=== PATIENT | female | born 1940 | race Caucasian/White ===

== ENCOUNTER 2016-09-17 19:55 | Inpatient (IN) | payer OTHER ==
--- NOTE | ~2016-09-17 | CN ---
Consultation Report [facility] [address] [place]. [address] NAME: WILIAN LOYA : 38 STATUS : ADM IN PAT#: [id number] AGE: 76 ADM/REG DATE : 09/17/16 MR#: [id number] REPORT SERV DATE: 09/18/16 DICTATED BY: DEA MARTINEZ DATE: 09/18/16 REPORT STATUS : Draft TRANSCRIBED BY: MODL DATE: 09/18/16 NEUROLOGY CONSULTATION DATE OF CONSULTATION: 09/18/2016 REASON FOR CONSULTATION: Frequent falls and syncope. HISTORY OF PRESENT ILLNESS: The patient is a 76-year-old female who had a recent fall and syncopal event. Apparently, she landed on her face. She is a very poor historian due to her frontal lobe dementia. Her is not available for further information and there is no information in her chart or on the computer in regard to the recent event. When speaking with the nurse, she reports the patient has frequent falls. PAST MEDICAL HISTORY: Frontal lobe dementia, neuropathy, arrhythmia, bradycardia (pacemaker placement), hyperlipidemia, fibromyalgia, GERD, eczema, former tobacco abuse, neuropathy, herpes zoster, migraines, uterine cancer, status post chemotherapy and surgery. PAST SURGICAL HISTORY: Total abdominal hysterectomy, appendectomy, cholecystectomy, D and C, tonsillectomy and adenoidectomy, pacemaker placement, exploratory lap with hernia repair. HOME MEDICATIONS: List includes Klonopin 0.5 mg twice a day, Cymbalta 60 mg daily, vitamin D 50,000 units every two weeks, EzFe 200 mg daily, Lopid 600 mg half a tablet daily, [place] 7.5/325 mg four times a day, Prinivil 10 mg daily, Remeron 45 mg at bedtime, potassium chloride SR 10 mEq twice a day, prednisone 10 mg daily, Lyrica 100 mg t.i.d., and Zantac 300 mg b.i.d. ALLERGIES: SULFA AND ORANGES. SOCIAL HISTORY: The patient lives with her . She is a former smoker. Does not drink alcohol or use illicit's. FAMILY HISTORY: The patient's mother suffered from hypertension, heart failure, AFib, and coronary artery disease. Her father had mesothelioma, coronary artery disease, and dementia. REVIEW OF SYSTEMS: Unable to obtain due to patient's dementia. PHYSICAL EXAMINATION: GENERAL: The patient is a 76-year-old female, who stands 5 feet tall and weighs 135 pounds. She is afebrile. Heart rate 60, paced, respiratory rate 18, O2 saturations on room air 95%, blood pressure 151/72. NEURO: The patient is awake. She does communicate. She is oriented to person, place, and time, not situation. She has poor short-term memory. She is able to recall her phone Consultation Report [place] [address] [facility] [place]. [address] NAME: WILIAN LOYA : 38 STATUS : ADM IN PAT#: [id number] AGE: 76 ADM/REG DATE : 09/17/16 MR#: [id number] REPORT SERV DATE: 09/18/16 DICTATED BY: DEA MARTINEZ DATE: 09/18/16 REPORT STATUS : Draft TRANSCRIBED BY: TIERNEY DATE: 09/18/16 number and her address. She can follow simple one and two-step commands. HEENT: Pupils 2 mm on the right, 3 mm on the left. They are both reactive. Cranial nerves are intact. She can move all extremities x4. There is no pronator drift. No ataxia with finger-to- nose. Upper extremity strength is 4/5 bilaterally. Upper DTRs 1+ bilaterally. No reported sensory deficits. In the lower extremities, strength is 4/5 bilaterally. Patellar reflexes are 2+ bilaterally. Unable to elicit Achilles. Downgoing toes. The patient does have diminished sensation from the toes to mid calf bilaterally. Diminished temperature and vibratory sense in the same distribution. NECK: No carotid bruits, JVD or thyromegaly. CHEST: Lung sounds relatively clear. CARDIAC: Regular rate and rhythm, paced. DATA: CBC normal. BMP normal. Urinalysis negative for UTI. Chest x-ray, no acute changes. CT of the brain, no acute changes. ASSESSMENT/PLAN: 1. Frequent falls, unknown etiology. At this time, the patient will undergo a CTA of the head and neck to rule out possible vertebrobasilar insufficiency. She will also have a CT of the C-spine to rule out any spinal stenosis. Orthostatic vital signs will be checked and recorded in the progress notes. The patient will have an echocardiogram with bubble study. She will have additional lab work check. PT and OT consultation with evaluation and treatment will be ordered. The patient will also undergo an EEG to rule out any underlying seizure disorder. 2. It is known that the patient has neuropathy. This could contribute to her frequent falling. Again, lab work will be checked to determine the etiology of her neuropathy. Thank you again for including us in consultation. We will continue to follow with you. SHO/TIERNEY Dea Martinez [facility]- / [id number] CC: Aries Jung M.D.
--- NOTE | ~2016-09-17 | EEG ---
Electroencephalogram [facility] [address] [place]. [address] NAME: WILIAN LOYA : 38 STATUS : ADM IN PAT#: [id number] AGE: 76 ADM/REG DATE : 09/17/16 MR#: [id number] REPORT SERV DATE: 09/18/16 DICTATED BY: DATE: REPORT STATUS : Draft TRANSCRIBED BY: MODL DATE: 09/18/16 NEUROLOGY EEG REPORT CLINICAL INDICATIONS: Loss of consciousness episode. DESCRIPTION: This EEG was performed using 10/20 electrode placement system. During the EEG study, symmetric background activity was noted with predominant occipital rhythm of roughly 10 Hz. Photic stimulation was performed with appropriate driving response. Hyperventilation was not performed. During the EEG study, the patient achieved drowsy state. No focal abnormalities, seizure activity, or seizure discharge was otherwise noted. INTERPRETATION: This EEG study obtained during awake and drowsy state may be considered within normal limits. No focal abnormalities, seizure activity, or seizure discharge was otherwise noted. Normal EEG does not preclude the diagnosis of seizure disorder. Clinical correlation is otherwise recommended. [facility]/MODL Delano Vega MD / [id number] CC: MD Aries Cai M.D.
--- NOTE | ~2016-09-17 | DS ---
Discharge Summary [facility] [address] [place]. [address] NAME: MIRTA LOYD : 38 STATUS : DIS IN PAT#: [id number] AGE: 76 ADM/REG DATE : 09/17/16 MR#: [id number] REPORT SERV DATE: 09/25/16 DICTATED BY: LEVI COLON DATE: 09/24/16 REPORT STATUS : Draft TRANSCRIBED BY: MODL DATE: 09/24/16 ADMISSION DATE: 09/17/2016 DISCHARGE DATE: 09/24/2016 CONDITION ON DISCHARGE: Stable. DISPOSITION: Discharged to [facility] [place] or SNF placement as the patient has significant dementia. DIAGNOSES ON DISCHARGE: 1. Recurrent falls-this is chronic. 2. Syncope, this has resolved. 3. Peripheral neuropathy-patient is being replaced with vitamin B12 and also vitamin D per Neurology recommendation. 4. Significant dementia with psychotic features for which patient is on multiple medications including the following; the patient continues to be on duloxetine 60 mg once a day, Depakote 250 mg p.o. b.i.d./drop attacks, mirtazapine 15 mg once a day, Lyrica 100 mg p.o. q.8 hours. 5. Influenza A viral infection as the patient came back positive for influenza A. The patient has been on Tamiflu day #4, and she will be given Tamiflu today and one more day so she completes a total of 5 day course of Tamiflu therapy. BRIEF HOSPITAL COURSE: Ms Mirta Loyd is a 76-year-old female patient, who was admitted with syncope and recurrent falls. For details, please see H and P. The patient also has a history of significant eczema of the skin especially on the forehead, advanced frontal lobe dementia, peripheral neuropathy, migraines, history of herpes zoster, bradycardia status post pacemaker placement, status post chemotherapy and surgery for uterine cancer. She was admitted for the syncopal attack and in the course that she was screened for influenza as she complained of cough, she came back positive for influenza A. The patient was subsequently started on Tamiflu for this. Regarding her medications, her medications were adjusted after Neurology was consulted. Dr. Stu Andrews, and Dea Blanco, her advanced nurse practitioner, continued to follow the patient while in the hospital. The patient's symptoms significantly improved and on the day of discharge, patient is ambulating. Her confusion stays chronic, and she does have these episodes of psychosis and confusion which are probably in keeping with her dementia. However, she is back at baseline, and she has had no more falls and feels much better and is discharged to [facility] [place] with the following medications. Her only new medications are AmLactin or Lac-Hydrin lotion that I prescribed for the eczema of her forehead, and this seems to have significantly helped her. The patient is also on vitamin B12 and vitamin D replacement. At this time, we will continue her Cymbalta 60 mg once a day, trazodone 50 mg once at night, EzFe 200 mg p.o. once a day, Lopid 300 mg p.o. daily, Prinivil 5 mg p.o. daily, mirtazapine or Remeron 15 mg p.o. at bedtime, pravastatin 10 mg once at bedtime, Lyrica 100 mg p.o. t.i.d., midodrine or ProAmatine 5 mg p.o. t.i.d., Discharge Summary [address] [address] NAME: MIRTA LOYD BOO : 38 STATUS : DIS IN PAT#: [id number] AGE: 76 ADM/REG DATE : 09/17/16 MR#: [id number] REPORT SERV DATE: 09/25/16 DICTATED BY: LEVI COLON DATE: 09/24/16 REPORT STATUS : Draft TRANSCRIBED BY: TIERNEY DATE: 09/24/16 nitroglycerin 0.4 mg sublingually p.r.n. for chest pain, Zantac 300 mg p.o. b.i.d., Klonopin 0.5 mg p.o. b.i.d. p.r.n. for severe anxiety, Tylenol 650 mg every four hours p.r.n., and potassium 10 mEq p.o. b.i.d. The patient's prednisone will be discontinued at this time as I really do not see a reason as to why she is on prednisone at this time unless her PCP plans to restart it. For now, it is at least being held. I have also stopped her unnecessary other supplements that she was taking including duplication of her ergocalciferol or vitamin D. She only needs 1 prescription for 5000 units p.o. daily of the cholecalciferol, and that is pretty much it. At this time, she also needs Tamiflu 75 mg p.o. b.i.d. to finish her five day course, and I have given a prescription for this. DISCHARGE LABS: Significant labs upon discharge include the following: On 09/23/2016, the patient's CBC showed a WBC count of 7.5, hemoglobin 10.9, hematocrit 32.8, platelet count of 208. Electrolyte profile showed sodium of 147, potassium of 3.6, BUN 11, creatinine 0.8. Her blood cultures came back with one positive blood culture out of two collected on 09/21/2016, but at this time I think this is a contaminant as the patient appears clinically extremely stable and well for having positive blood cultures like this. Besides, the patient is afebrile, WBC count is fine, and definitely she does not look toxic so unnecessarily we are not going to treat this patient with any antibiotics. The patient's procainamide level has come back less than 0.4 and NAPA less than 0.6. Her ammonia levels are 39. A chest CT that was done without contrast shows that the patient has coarse bronchovascular markings and pleural thickening but no acute pneumonia. Her sedimentation rate came back normal at 19. Her procalcitonin levels came back less than 0.05 further suggesting that definitely this patient does not need any antibiotics. At the time of presentation, we also obtained a lipid profile that shows HDL of 48 and LDL of 82, total cholesterol of 144, and triglycerides of 73 in this patient. Vitamin B12 came back low at 136, and that is the reason this is being replaced. Vitamin D came back low at 25, and that is the reason this is being replaced too. A1c was normal at 5.6. Electroencephalogram showed no active seizures. The patient also had a CT scan of the brain without contrast that showed significant frontal lobe atrophy but no acute intracranial hemorrhage or any other acute intracranial pathology. The patient also had a CTA of the brain with and without contrast and CTA of the neck again showing no significant stenosis. The patient does have cerebral atrophy, which is in consistence with her dementia, so she is being transferred to [facility], and I have spent about 40 minutes in coordinating discharge care of this patient including ptra-pe-pnad encounter and summarizing this discharge. Discharge Summary [place] [address] [place] [address] NAME: MIRTA LOYD : 38 STATUS : DIS IN PAT#: [id number] AGE: 76 ADM/REG DATE : 09/17/16 MR#: [id number] REPORT SERV DATE: 09/25/16 DICTATED BY: LEVI COLON DATE: 09/24/16 REPORT STATUS : Draft TRANSCRIBED BY: MODMi DATE: 09/24/16 RRA/TIERNEY Levi Colon M.D. / [id number] CC: Lanie Jenkins M.D.
--- NOTE | ~2016-09-17 | HP ---
History And Physical [place] [id number] [facility] [place]. [address] NAME: WILIAN LOYA : 38 STATUS : ADM IN PAT#: [id number] AGE: 76 ADM/REG DATE : 09/17/16 MR#: [id number] REPORT SERV DATE: 09/18/16 DICTATED BY: DATE: REPORT STATUS : Draft TRANSCRIBED BY: MODL DATE: 09/18/16 DATE OF ADMISSION: 09/17/2016 CHIEF COMPLAINT: Recent fall and syncope. IDENTIFYING DATA: PCP, nurse practitioner at Dr. Jung's office. Neurology, Anna Orozco M.D. and Cardiology, Dr. De Dios. ION EXCHANGE OPERATOR: Neurology, Dea Blanco, nurse practitioner. HISTORY OF PRESENT ILLNESS: This is a 76-year-old female, who has been having frequent falls in the last two months with increase of falls to daily in the last week. The patient had a fall yesterday prior to admission. The patient is a very poor historian due to her frontal lobe dementia. Discussed the patient's status with over the phone and received this information. Spouse states that she is functional and that she eats well and is able to swallow her pills. The patient's spouse also is poor historian in regard to medications and physicians. The patient is currently alert and oriented to self and her date of . The patient's history was obtained through careful interview with the patient, the patient's spouse coupled with review in [facility] [employer] [facility] [employer]. PAST MEDICAL HISTORY: Eczema, history of tobacco abuse, neuropathy, GERD, status post chemotherapy and surgery for uterine cancer, migraines, herpes zoster, bradycardia with pacemaker placement, arrhythmia, frontal lobe dementia. HOME MEDICATIONS: Tylenol 650 mg every four hours as needed for pain; clonazepam scheduled 0.5 mg twice daily; Vibramycin 100 mg twice daily, has finished the last 10 days; Cymbalta 60 mg daily; vitamin D 50,000 units every 14 days; EzFe 200 mg daily; Lopid 300 mg daily; [place] 5/325 scheduled for pain and [place] 7.5/325 four times daily p.r.n. for pain; lisinopril 10 mg daily; midodrine 5 mg three times a day as needed for systolic blood pressure less than 125; mirtazapine 45 mg at bedtime. It is also written that the patient uses 's mirtazapine 30 mg also at bedtime, nitroglycerin 0.4 mg sublingual p.r.n. chest pain, potassium 10 mEq twice daily, pravastatin 10 mg daily, prednisone 10 mg daily, Lyrica 100 mg three times a day, ranitidine 300 mg twice daily, and trazodone 50 mg daily. ALLERGIES: THE PATIENT IS ALLERGIC TO SULFA, WHICH CAUSES A RASH AND ORANGES, WHICH CAUSE NAUSEA AND VOMITING. SOCIAL HISTORY: The patient lives at home with her spouse. She has history of smoking. Denies alcohol or illicit drug use. FAMILY HISTORY: The patient's father had mesothelioma, coronary artery disease, and dementia. The patient's mother suffered from hypertension, heart failure, atrial fibrillation, and coronary artery disease. REVIEW OF SYSTEMS: The patient denies shortness of breath, chest pain. Denies nausea, vomiting, or abdominal History And Physical [address] [address] NAME: WILIAN LOYA : 38 STATUS : ADM IN [facility]#: [id number] AGE: 76 ADM/REG DATE : 09/17/16 MR#: [id number] REPORT SERV DATE: 09/18/16 DICTATED BY: DATE: REPORT STATUS : Draft TRANSCRIBED BY: MODL DATE: 09/18/16 pain. The patient states no complaint of pain and is ambulatory with assistance. Review of systems negative other than HPI. PHYSICAL EXAMINATION: VITAL SIGNS: Blood pressure 161/74, O2 saturation 93% on room air, temperature 98.2, heart rate is 74, and respirations are 18. GENERAL: Elderly female, appearing stated age, resting in bed, in no acute distress. NEURO: The patient is awake and able to communicate. She is oriented to person and date of and not situation. She has poor short-term memory loss. The patient remembers her 's name and her phone number. NECK: Supple. Trachea is midline. Neck veins are flat. No obvious thyromegaly or lymphadenopathy. EENT: Sclerae are nonicteric. Pupils 2 mm on the right, 3 mm on the left. Both are reactive to light and accommodation. Nares are patent. Mucous membranes are moist, extraocular muscles within normal limits. Tongue is midline without deviation. CHEST: No pain with palpation. The patient does have a pacemaker in place. LUNGS: Clear to auscultation with normal respiratory effort. CARDIOVASCULAR: S1 and S2 with no obvious murmurs, rubs, or gallops. Rhythm is paced. ABDOMEN: Soft and nontender with active bowel sounds. No palpable organomegaly. Last bowel movement was 09/17/2016. EXTREMITIES: No significant edema, clubbing, or cyanosis. The patient does have an abrasion on her right knee. Pedal and radial pulses are present and equal bilaterally. SKIN: Skin is warm and dry with no unusual rashes or skin lesions, normal color and turgor. PSYCH: The patient is pleasant and cooperative and exhibits no anxiety. LABORATORY DATA: The patient's echo showed a negative bubble study with ejection fraction of 55%. EEG was within normal limits. CT of the brain without contrast showed no acute intracranial hemorrhage or any other acute intracranial pathology. Moderate diffuse cerebral involutional changes and deep white matter chronic microvascular ischemic changes. Chest PA and lateral showed cardiomegaly, pacemaker. Lungs are clear. Possible old rib trauma. A.m. cortisol is 16.5, TSH is 0.5, free T4 is 1.02, folate is 8.7, triglyceride 73, cholesterol 144, HDL is 48, LDL is 82, total cholesterol is 3.0, vitamin D is 25, hemoglobin A1c is 5.6. UA with reflex was negative. Sodium is 140, potassium is 4.5, chloride is 106, BUN is 11, creatinine is 1.05, GFR is 59, glucose is 99, calcium is 8.8, magnesium is 2.0. WBC is 10.6, hemoglobin 13.0, hematocrit 39.9, platelets 262. INR 1.1. CPK 207. Troponin less than 0.02. ASSESSMENT AND PLAN: 1. Syncope. We have consulted Neurology, who has already seen the patient and has ordered multiple tests and will continue to follow the patient while she is here. Orthostatic vital signs have already been ordered. 2. Recent fall. The patient is on multiple anxiolytics, benzodiazepines, excessive doses of medications. We are decreasing her sedatives and her medications and making her strict fall risk with the PT/OT evaluation. We are discontinuing her clonazepam, her Zantac, and her trazodone. We are decreasing her Lyrica to 50 mg p.o. t.i.d. due to her GFR. We are placing the patient on pain medicine, Roxicodone 5 mg p.o. t.i.d. p.r.n., not scheduled and holding if her blood pressure is less than 110 or heart rate History And Physical [address] [place]. [address] NAME: WILIAN LOYA : 38 STATUS : ADM IN PAT#: [id number] AGE: 76 ADM/REG DATE : 09/17/16 MR#: [id number] REPORT SERV DATE: 09/18/16 DICTATED BY: DATE: REPORT STATUS : Draft TRANSCRIBED BY: MODL DATE: 09/18/16 is less than 70. 3. Dementia. We will be evaluating the patient in the morning to see how she does with her decreased medications. We have decreased her Remeron to 15 mg at bedtime. It is difficult to ascertain from her home med list whether she is taking the 45 mg that has been prescribed for her as well as her 's 30 mg as well as the clonazepam that is scheduled as well as the trazodone. 4. Fibromyalgia. The patient is on Lyrica and prednisone. We are decreasing her Lyrica due to her GFR and continuing her prednisone and placing her on Roxicodone p.r.n. 5. Gastroesophageal reflux disease. We are discontinuing her Zantac due to her GFR and possible sedative affects and putting her on omeprazole. 6. Insomnia, unsure as to what the patient is taking for her insomnia. We are decreasing her Remeron dose to achieve a more sedative effect and discontinuing her clonazepam and her trazodone. Approximately, 50 minutes has been spent coordinating care of this patient, including face- to-face encounter and phone calls with her spouse. PIA/MODL Radha Landry NP / [id number] CC: MD Aries Cai M.D.
[2016-09-17 16:07] LABS: ASCORBIC ACID (UR NOT ORDER) NEG (NEG); BILIRUBIN, URINE NEGATIVE (NEG); ER URINALYSIS TAT 0 Hrs 09 Mins; KETONE, URINE NEGATIVE (NEG); LEUKOCYTE ESTERASE(NOT OR NEG (NEG); NITRITE (URINE) NEG (NEG); WBC (NOT ORDERED) (RFLEX) 1 (0-5)
[2016-09-17 16:08] LABS: BASOPHILS 0.3 %; BASOPHILS ABSOLUTE 0.03 10/3/uL (0.0-0.16); EOSINOPHILS 1.9 %; HEMATOCRIT 39.9 % (36.0-48.0); IMMATURE GRANULOCYTES 0.2 %; IMMATURE GRANULOCYTES ABSOLUTE 0.02 10/3/uL (0.0-0.11); LYMPHOCYTES 15.5 %; LYMPHOCYTES ABSOLUTE 1.64 10/3/uL (0.67-4.30); MEAN CORPUS HGB CONC 32.6 g/dL (32.0-36.0); MEAN CORPUSCULAR HEMOGLOB 30.7 pg (26.0-34.0); MEAN CORPUSCULAR VOLUME 94.1 fL (80-100); MEAN PLATELET VOLUME 10.2 fL (9.2-13.0); MONOCYTES 5.9 %; MONOCYTES ABSOLUTE 0.63 10/3/uL (0.21-1.20); NEUTROPHILS 76.2 %; NEUTROPHILS ABSOLUTE 8.09 10/3/uL (2.02-8.40); PLATELET COUNT 262 10/3/uL (150-400); RED CELL COUNT 4.24 10/6/uL (4.0-5.6); WHITE BLOOD CELLS 10.6 10/3/uL (4.5-10.5)
[2016-09-17 16:09] LABS: MANUAL DIFF NO %
[2016-09-17 16:15] LABS: INTERNATIONAL NORMAL RATI 1.1 UNITS (-); PROTIME (NOT ORD) 14.4 SEC (12.0-14.5)
[2016-09-17 16:16] LABS: PARTIAL THROMBO TIME 31.1 SEC (22.5-37.2)
[2016-09-17 16:26] LABS: BUN (BLOOD UREA NITROGEN) 11 MG/DL (6-23); CALCIUM, SERUM 8.8 MG/DL (8.5-10.4); CHEST PAIN PROFILE TAT 0 Hrs 24 Mins; CHLORIDE, SERUM 106 MMOL/L (96-112); CO2 (CARBON DIOXIDE) 25 MMOL/L (24-34); CREATININE 1.05 MG/DL (0.55-1.02); GFR AFRICAN AMERICAN 59 ML/MIN (>=60); GFR NON AFRICAN AMERICAN 51 ML/MIN (>=60); GLUCOSE, SERUM 99 MG/DL (60-99); POTASSIUM, SERUM 4.5 MMOL/L (3.5-5.3); SODIUM, SERUM 140 MMOL/L (135-148); TROPONIN I <0.02 NG/ML (<0.05)
[2016-09-17 19:32] LABS: CPK 207 U/L (0-200)
[~2016-09-17 19:55] MED LIST: AMB10 PO; CYMBALTA60 PO; DCN100 PO; IMITREX100 MG PO; KLONO5 PO; LORTAB 5 PO; LYRICA100 MG PO; LYRICA75 PO; NAP500 PO; NITROSTAT0.4 MG SL; NORCO1 TA1 PO; PRAV10 PO; PRIN5 PO; PROAMAT5 PO; RANITIDINE300 MG PO; REMERON30 MG PO; T PO; TRAZ50 PO; VALTREX5 PO; VIB100 PO; VITAMIN D31000 UNIT PO; ZANTAC300 MG PO; ZOL100 PO
[2016-09-17] MEDS ORDERED: KLONO5 PO (21:30)
[2016-09-17] MEDS ORDERED: REMERON45 MG PO (21:30)
[2016-09-17] MEDS ORDERED: PRIN10 PO (21:30)
[2016-09-17] MEDS ORDERED: LYRICA100 MG PO (21:30)
[2016-09-17] MEDS ORDERED: ZANTAC300 MG PO (21:31)
[2016-09-17] MEDS ORDERED: LOPID6 PO (21:31)
[2016-09-17] MEDS ORDERED: VITD PO (21:31)
[2016-09-17] MEDS ORDERED: P10 PO (21:32)
[2016-09-17] MEDS ORDERED: EZFE 200200 MG PO (21:32)
[2016-09-17] MEDS ORDERED: NORCO1 TA2 PO (21:32)
[2016-09-17] MEDS ORDERED: KDUR10 PO (21:32)
[2016-09-17] MEDS ORDERED: CYMBALTA60 PO (21:32)
[2016-09-18 12:46] LABS: FOLATE 8.7 NG/ML (>5.2); FREE T4 1.02 NG/DL (0.76-1.46); ULTRASENSITIVE TSH 0.5 MCIU/ML (0.358-3.740)
[2016-09-19 07:29] LABS: BUN (BLOOD UREA NITROGEN) 11 MG/DL (6-23); CALCIUM, SERUM 8.6 MG/DL (8.5-10.4); CHLORIDE, SERUM 112 MMOL/L (96-112); CO2 (CARBON DIOXIDE) 22 MMOL/L (24-34); CREATININE 0.87 MG/DL (0.55-1.02); GFR AFRICAN AMERICAN 74 ML/MIN (>=60); GFR NON AFRICAN AMERICAN 64 ML/MIN (>=60); GLUCOSE, SERUM 100 MG/DL (60-99); SODIUM, SERUM 145 MMOL/L (135-148)
[2016-09-19 07:30] LABS: POTASSIUM, SERUM 3.5 MMOL/L (3.5-5.3)
[2016-09-19 07:38] LABS: BASOPHILS 0.3 %; BASOPHILS ABSOLUTE 0.02 10/3/uL (0.0-0.16); EOSINOPHILS 2.4 %; EOSINOPHILS ABSOLUTE 0.17 10/3/uL (0.0-0.53); HEMOGLOBIN 11.7 g/dL (12.0-16.0); IMMATURE GRANULOCYTES 0.1 %; IMMATURE GRANULOCYTES ABSOLUTE 0.01 10/3/uL (0.0-0.11); LYMPHOCYTES 22.8 %; LYMPHOCYTES ABSOLUTE 1.63 10/3/uL (0.67-4.30); MEAN CORPUS HGB CONC 33.4 g/dL (32.0-36.0); MEAN CORPUSCULAR HEMOGLOB 30.2 pg (26.0-34.0); MEAN PLATELET VOLUME 10.4 fL (9.2-13.0); NEUTROPHILS 67.4 %; NEUTROPHILS ABSOLUTE 4.82 10/3/uL (2.02-8.40); PLATELET COUNT 249 10/3/uL (150-400); RBC DISTRIBUTION WIDTH 14.6 % (12.0-16.0); RED CELL COUNT 3.87 10/6/uL (4.0-5.6); WHITE BLOOD CELLS 7.2 10/3/uL (4.5-10.5)
[2016-09-19 07:40] LABS: MANUAL DIFF NO %; MEAN CORPUSCULAR VOLUME 90.4 fL (80-100)
[2016-09-20 08:40] LABS: BASOPHILS 0.1 %; BASOPHILS ABSOLUTE 0.01 10/3/uL (0.0-0.16); EOSINOPHILS 0.1 %; EOSINOPHILS ABSOLUTE 0.01 10/3/uL (0.0-0.53); HEMATOCRIT 37.1 % (36.0-48.0); HEMOGLOBIN 12.6 g/dL (12.0-16.0); IMMATURE GRANULOCYTES 0.2 %; IMMATURE GRANULOCYTES ABSOLUTE 0.02 10/3/uL (0.0-0.11); LYMPHOCYTES 4.9 %; LYMPHOCYTES ABSOLUTE 0.43 10/3/uL (0.67-4.30); MEAN CORPUSCULAR HEMOGLOB 30.7 pg (26.0-34.0); MEAN CORPUSCULAR VOLUME 90.3 fL (80-100); MEAN PLATELET VOLUME 10.3 fL (9.2-13.0); MONOCYTES ABSOLUTE 0.35 10/3/uL (0.21-1.20); NEUTROPHILS 90.7 %; NEUTROPHILS ABSOLUTE 7.93 10/3/uL (2.02-8.40); PLATELET COUNT 242 10/3/uL (150-400); RBC DISTRIBUTION WIDTH 14.5 % (12.0-16.0); RED CELL COUNT 4.11 10/6/uL (4.0-5.6); WHITE BLOOD CELLS 8.8 10/3/uL (4.5-10.5)
[2016-09-20 08:42] LABS: MANUAL DIFF NO %
[2016-09-20 08:57] LABS: BUN (BLOOD UREA NITROGEN) 11 MG/DL (6-23); CALCIUM, SERUM 8.9 MG/DL (8.5-10.4); CHLORIDE, SERUM 107 MMOL/L (96-112); CO2 (CARBON DIOXIDE) 23 MMOL/L (24-34); CREATININE 1.07 MG/DL (0.55-1.02); GFR AFRICAN AMERICAN 58 ML/MIN (>=60); GFR NON AFRICAN AMERICAN 50 ML/MIN (>=60); GLUCOSE, SERUM 117 MG/DL (60-99); POTASSIUM, SERUM 3.4 MMOL/L (3.5-5.3); SGOT(AST) 11 U/L (5-40); SGPT(ALT) 18 U/L (5-65); SODIUM, SERUM 140 MMOL/L (135-148)
[2016-09-20 08:58] LABS: ALBUMIN 3.9 G/DL (3.5-5.0); ALKALINE PHOSPHATASE 98 U/L (45-117); TOTAL BILIRUBIN 0.9 MG/DL (0-1.2); TOTAL PROTEIN 7.9 G/DL (6.0-8.5)
[2016-09-21 07:53] LABS: BASOPHILS 0.2 %; BASOPHILS ABSOLUTE 0.02 10/3/uL (0.0-0.16); EOSINOPHILS 0 %; HEMATOCRIT 39.4 % (36.0-48.0); IMMATURE GRANULOCYTES 0.3 %; IMMATURE GRANULOCYTES ABSOLUTE 0.03 10/3/uL (0.0-0.11); LYMPHOCYTES 10.5 %; LYMPHOCYTES ABSOLUTE 1.03 10/3/uL (0.67-4.30); MANUAL DIFF NO %; MEAN CORPUSCULAR HEMOGLOB 31.1 pg (26.0-34.0); MEAN CORPUSCULAR VOLUME 94.3 fL (80-100); MEAN PLATELET VOLUME 10.2 fL (9.2-13.0); MONOCYTES 3.9 %; MONOCYTES ABSOLUTE 0.38 10/3/uL (0.21-1.20); NEUTROPHILS 85.1 %; NEUTROPHILS ABSOLUTE 8.33 10/3/uL (2.02-8.40); PLATELET COUNT 191 10/3/uL (150-400); RED CELL COUNT 4.18 10/6/uL (4.0-5.6); WHITE BLOOD CELLS 9.8 10/3/uL (4.5-10.5)
[2016-09-21 08:05] LABS: BUN (BLOOD UREA NITROGEN) 10 MG/DL (6-23); CALCIUM, SERUM 8.2 MG/DL (8.5-10.4); CHLORIDE, SERUM 113 MMOL/L (96-112); CO2 (CARBON DIOXIDE) 19 MMOL/L (24-34); CREATININE 1.04 MG/DL (0.55-1.02); GFR AFRICAN AMERICAN 60 ML/MIN (>=60); GFR NON AFRICAN AMERICAN 51 ML/MIN (>=60); GLUCOSE, SERUM 103 MG/DL (60-99); POTASSIUM, SERUM 3.9 MMOL/L (3.5-5.3); SODIUM, SERUM 142 MMOL/L (135-148)
[2016-09-21 08:08] LABS: C-REACTIVE PROTEIN 55.2 MG/L (<8.0)
[2016-09-21 09:15] LABS: PROCALCITONIN <0.05 ng/mL (<0.5)
[2016-09-21 14:39] LABS: WBC (NOT ORDERED) (RFLEX) 0 (0-5)
[2016-09-21 15:21] LABS: ASCORBIC ACID (UR NOT ORDER) NEG (NEG); BILIRUBIN, URINE NEGATIVE (NEG); KETONE, URINE NEGATIVE (NEG); LEUKOCYTE ESTERASE(NOT OR NEG (NEG)
[2016-09-21 18:25] LABS: INFLUENZA A SCREEN POSITIVE (NEGATIVE); INFLUENZA B SCREEN NEGATIVE (NEGATIVE)
[2016-09-22 06:32] LABS: BASOPHILS 0.1 %; BASOPHILS ABSOLUTE 0.01 10/3/uL (0.0-0.16); EOSINOPHILS 0 %; IMMATURE GRANULOCYTES 0.2 %; IMMATURE GRANULOCYTES ABSOLUTE 0.02 10/3/uL (0.0-0.11); LYMPHOCYTES 13.8 %; LYMPHOCYTES ABSOLUTE 1.79 10/3/uL (0.67-4.30); MEAN CORPUSCULAR HEMOGLOB 30.6 pg (26.0-34.0); MEAN CORPUSCULAR VOLUME 92.8 fL (80-100); MEAN PLATELET VOLUME 10.5 fL (9.2-13.0); MONOCYTES 3.1 %; NEUTROPHILS 82.8 %; NEUTROPHILS ABSOLUTE 10.74 10/3/uL (2.02-8.40); PLATELET COUNT 191 10/3/uL (150-400); RBC DISTRIBUTION WIDTH 14.8 % (12.0-16.0); RED CELL COUNT 3.59 10/6/uL (4.0-5.6)
[2016-09-22 06:33] LABS: HEMATOCRIT 33.3 % (36.0-48.0); MANUAL DIFF NO %
[2016-09-22 06:43] LABS: CALCIUM, SERUM 8.4 MG/DL (8.5-10.4); CHLORIDE, SERUM 113 MMOL/L (96-112); CO2 (CARBON DIOXIDE) 20 MMOL/L (24-34); CREATININE 0.86 MG/DL (0.55-1.02); GFR AFRICAN AMERICAN 75 ML/MIN (>=60); GFR NON AFRICAN AMERICAN 65 ML/MIN (>=60); GLUCOSE, SERUM 105 MG/DL (60-99); POTASSIUM, SERUM 3.4 MMOL/L (3.5-5.3); SODIUM, SERUM 144 MMOL/L (135-148)
[2016-09-22 06:49] LABS: BUN (BLOOD UREA NITROGEN) 15 MG/DL (6-23); C-REACTIVE PROTEIN 95.4 MG/L (<8.0)
[2016-09-22 07:11] LABS: SED RATE 28 MM/HR (0-20)
[2016-09-23 06:40] LABS: BASOPHILS 0.1 %; BASOPHILS ABSOLUTE 0.01 10/3/uL (0.0-0.16); EOSINOPHILS 0.3 %; EOSINOPHILS ABSOLUTE 0.02 10/3/uL (0.0-0.53); HEMATOCRIT 32.8 % (36.0-48.0); HEMOGLOBIN 10.9 g/dL (12.0-16.0); IMMATURE GRANULOCYTES 0.1 %; IMMATURE GRANULOCYTES ABSOLUTE 0.01 10/3/uL (0.0-0.11); LYMPHOCYTES 33.3 %; LYMPHOCYTES ABSOLUTE 2.48 10/3/uL (0.67-4.30); MEAN CORPUS HGB CONC 33.2 g/dL (32.0-36.0); MEAN CORPUSCULAR HEMOGLOB 30.2 pg (26.0-34.0); MEAN CORPUSCULAR VOLUME 90.9 fL (80-100); MEAN PLATELET VOLUME 10.4 fL (9.2-13.0); MONOCYTES 5.5 %; MONOCYTES ABSOLUTE 0.41 10/3/uL (0.21-1.20); NEUTROPHILS 60.7 %; NEUTROPHILS ABSOLUTE 4.52 10/3/uL (2.02-8.40); PLATELET COUNT 208 10/3/uL (150-400); RBC DISTRIBUTION WIDTH 15.1 % (12.0-16.0); RED CELL COUNT 3.61 10/6/uL (4.0-5.6)
[2016-09-23 06:43] LABS: MANUAL DIFF NO %; WHITE BLOOD CELLS 7.5 10/3/uL (4.5-10.5)
[2016-09-23 06:48] LABS: BUN (BLOOD UREA NITROGEN) 11 MG/DL (6-23); CALCIUM, SERUM 8.3 MG/DL (8.5-10.4); CHLORIDE, SERUM 114 MMOL/L (96-112); CO2 (CARBON DIOXIDE) 24 MMOL/L (24-34); CREATININE 0.83 MG/DL (0.55-1.02); GFR AFRICAN AMERICAN 78 ML/MIN (>=60); GFR NON AFRICAN AMERICAN 68 ML/MIN (>=60); GLUCOSE, SERUM 83 MG/DL (60-99); POTASSIUM, SERUM 3.6 MMOL/L (3.5-5.3); SODIUM, SERUM 147 MMOL/L (135-148)
[2016-09-23] MEDS ORDERED: REM15 PO (16:21)
[2016-09-24 04:49] LABS: NAPA <0.6 ug/mL (6.0-20.0); PROCAINAMIDE <0.4 ug/mL (4.0-10.0)
== END 2016-09-24 15:23 | DRG 194 ==
LOC: ER 19:55 → 1SO 20:53
PROVIDERS: Hospitalist; Nurse Practitioner; Nurse Practitioner Family; Psychiatry & Neurology Neurology
DX: J10.1 Influenza due to other identified influenza virus with other respiratory manifestations (principal); F05 Delirium due to known physiological condition; F03.91 Unspecified dementia, unspecified severity, with behavioral disturbance; G62.9 Polyneuropathy, unspecified; G31.09 Other frontotemporal neurocognitive disorder; R55 Syncope and collapse; K21.9 Gastro-esophageal reflux disease without esophagitis; I10 Essential (primary) hypertension; M79.7 Fibromyalgia; L30.9 Dermatitis, unspecified; E55.9 Vitamin D deficiency, unspecified; R47.1 Dysarthria and anarthria; F41.9 Anxiety disorder, unspecified; R50.9 Fever, unspecified; G47.00 Insomnia, unspecified; E53.8 Deficiency of other specified B group vitamins; W18.30XA Fall on same level, unspecified, initial encounter; R29.6 Repeated falls; Z87.891 Personal history of nicotine dependence; Z95.0 Presence of cardiac pacemaker; Z79.899 Other long term (current) drug therapy; Z79.891 Long term (current) use of opiate analgesic; Z85.42 Personal history of malignant neoplasm of other parts of uterus; Z91.81 History of falling; Z88.2 Allergy status to sulfonamides; Z91.018 Allergy to other foods
CPT/HCPCS: 70450; 70496; 70498; 71010; 71020; 71250; 72125; 80048; 80053; 80061; 80192; 81001; 82140; 82306; 82533; 82550; 82607; 82746; 83036; 83735; 84145; 84439; 84443; 84484; 85025; 85610; 85652; 85730; 86140; 87040; 87150; 87804; 90471; 90714; 93005; 93306; 95816; 97110-GP; 97116-GP; 97161-GP; 97166-GO; 99285; A9270-GY; Q9967